=== PATIENT | male | born 1965 | race Caucasian/White ===

== ENCOUNTER 2017-10-18 11:45 | Observation (INO) | END 2017-10-18 19:17 | disposition home or self-care (01) ==

== ENCOUNTER 2017-11-29 14:41 | Inpatient (IN) | END 2017-12-01 10:00 | disposition home or self-care (01) | DRG 246 ==

== ENCOUNTER 2018-07-21 14:57 | Observation (INO) | payer MEDICARE, OTHER ==
[~2018-07-21] VITALS: Ht 167.6 cm; Wt 89.1 kg
[~2018-07-21 14:57] MED LIST: APIX5TAB PO; ATOR-2 PO; CALC667C PO; CARV6.2579 PO; CLOP75TA27 PO; FURO40TA4 PO; INSU100I33 SC; IRBE300T15 PO; SITA25TA3 PO; SVL800C PO; VIT1TABL46 PO
[2018-07-21 15:05] VITALS: Ht 167.6 cm; Wt 89.1 kg
--- NOTE | 2018-07-21 16:20 | ERD ---
ER Documentation Chief Complaint Chief Complaint chest pain started 1 hour ago radiatinng to left arm HPI 53-year-old male with a history of ESRD on hemodialysis, hypertension, diabetes, and CAD status post PCI 2018 presenting after he started having chest pain about 1 hour ago that was substernal and radiating to his left arm. It lasted for about 15 minutes. He was given aspirin and nitro prior to arrival by ambulance and his chest pain has since resolved. He was feeling short of breath when he had the chest pain but no dizziness or vomiting. Denies any recent travel or leg swelling. Last dialysis was yesterday. Of note, his Plavix, Eliquis, and aspirin have been stopped for an ophthalmology procedure he had today. ROS All systems reviewed and are negative except as per history of present illness. Medications Home Meds Reported Medications Isosorbide Mononitrate* (Isosorbide Mononitrate*) 30 Mg Tab.er.24h, 30 MG PO DAILY, TAB 07/21/18 Irbesartan* (Irbesartan*) 300 Mg Tablet, 300 MG PO DAILY, TAB 07/21/18 Furosemide* (Furosemide*) 40 Mg Tablet, 40 MG PO DAILY, TAB 07/21/18 [Fish Oil 300MG] No Conflict Check, 1 CAP PO DAILY 07/21/18 Clopidogrel Bisulfate* (Clopidogrel Bisulfate*) 75 Mg Tablet, 75 MG PO DAILY, #30 TAB 07/21/18 Carvedilol* (Carvedilol*) 6.25 Mg Tablet, 6.25 MG PO DAILY, #60 TAB 07/21/18 Calcium Acetate* (Calcium Acetate*) 667 Mg Capsule, 1334 MG PO WITH MEALS, #60 CAP 07/21/18 B Complex & C No.20/Folic Acid (Virt-Caps Softgel) 1 Mg Capsule, 1 MG PO DAILY, CAP 07/21/18 Sitagliptin* (Januvia*) 25 Mg Tablet, 25 MG PO DAILY, #30 TAB 07/21/18 Sevelamer Hcl* (Renagel*) 800 Mg Tablet, 2400 MG PO WITH MEALS, TAB 07/21/18 Insulin Glargine,Hum.rec.anlog (Basaglar Kwikpen U-100) 100 Unit/1 Ml Insuln.pen, 0 SC BID, EA 5 UNIT-QAM AND 15 UNIT-QPM 07/21/18 Lanthanum Carbonate* (Fosrenol*) 500 Mg Tab.chew, 500 MG PO TID, TAB.CHEW WITH MEALS 07/21/18 Discontinued Reported Medications Calcium Acetate* (Calcium Acetate*) 667 Mg Capsule, 2001 MG PO WITH MEALS, #90 CAP 10/18/17 Atorvastatin* (Atorvastatin*) 80 Mg Tablet, 80 MG PO QHS, #30 TAB 10/18/17 Irbesartan* (Irbesartan*) 300 Mg Tablet, 300 MG PO DAILY, TAB 10/18/17 Insulin Glargine,Hum.rec.anlog (Basaglar Kwikpen U-100) 100 Unit/1 Ml Insuln.pen, 8 UNIT SC DAILY, EA 10/18/17 Sitagliptin* (Januvia*) 25 Mg Tablet, 25 MG PO DAILY, #30 TAB 10/18/17 Clopidogrel Bisulfate (Clopidogrel) 75 Mg Tablet, 75 MG PO DAILY, #30 TAB 10/18/17 Sevelamer Hcl* (Renagel*) 800 Mg Tablet, 2400 MG PO WITH MEALS, TAB 10/18/17 Carvedilol* (Carvedilol*) 6.25 Mg Tablet, 6.25 MG PO BID, #60 TAB 10/18/17 Furosemide* (Furosemide*) 40 Mg Tablet, 40 MG PO DAILY, TAB 10/18/17 Vitamin B Complex* (Vitamin B Complex*) 1 Each Tablet, 1 TAB PO DAILY, TAB 10/18/17 Discontinued Scripts Apixaban* (Eliquis*) 5 Mg Tablet, 5 MG PO BID for 30 Days, TAB Prov:YOVANI SCHAFER MD 12/01/17 Allergies Allergies: Coded Allergies: No Known Allergies (Verified Allergy, Unknown, 07/21/18) PMhx/Soc History of Surgery: Yes (LT AV fistula, stent placement, left eye sx) Anesthesia Reaction: No Hx Neurological Disorder: No Hx Respiratory Disorders: No Hx Cardiac Disorders: Yes (HTN, STENT) Hx Psychiatric Problems: No Hx Miscellaneous Medical Probl: Yes (ESRD, DM) Hx Alcohol Use: No Hx Substance Use: No Hx Tobacco Use: No Smoking Status: Never smoker FmHx Family History: diabetes Physical Exam Vitals Vital Signs Date Temp Pulse Resp B/P (MAP) Pulse Ox O2 O2 Flow FiO2 Time Delivery Rate 07/21/18 108 20 161/85 97 Room Air 17:59 (110) 07/21/18 Nasal 4 15:14 Cannula 07/21/18 98.3 79 18 184/94 88 15:05 (124) Physical Exam Const: No acute distress Head: Atraumatic Eyes: right eye with normal conjunctiva. Left eye covered with patch ENT: Normal External Ears, Nose and Mouth. Neck: Full range of motion. No meningismus. Resp: Clear to auscultation bilaterally Cardio: Regular rate and rhythm, no murmurs. 2+ distal pulses in all 4 extremities Abd: Soft, non tender, non distended. Normal bowel sounds Skin: No petechiae or rashes Back: No midline or flank tenderness Ext: No cyanosis, or edema. Left upper extremity AV fistula Neur: Awake and alert Psych: Normal Mood and Affect Result Diagram: 07/21/18 1510 07/21/18 1510 Results 24 hrs Laboratory Tests Test 07/21/18 15:10 White Blood Count 10.0 10^3/ul Red Blood Count 3.98 10^6/ul Hemoglobin 11.3 g/dl Hematocrit 35.7 % Mean Corpuscular Volume 89.7 fl Mean Corpuscular Hemoglobin 28.4 pg Mean Corpuscular Hemoglobin Concent 31.7 g/dl Red Cell Distribution Width 13.2 % Platelet Count 163 10^3/UL Mean Platelet Volume 10.7 fl Immature Granulocytes % 1.000 % Neutrophils % 82.6 % Lymphocytes % 14.3 % Monocytes % 1.7 % Eosinophils % 0.1 % Basophils % 0.3 % Nucleated Red Blood Cells % 0.0 /100WBC Immature Granulocytes # 0.100 10^3/ul Neutrophils # 8.2 10^3/ul Lymphocytes # 1.4 10^3/ul Monocytes # 0.2 10^3/ul Eosinophils # 0.0 10^3/ul Basophils # 0.0 10^3/ul Nucleated Red Blood Cells # 0.0 10^3/ul Sodium Level 136 mmol/L Potassium Level 5.5 mmol/L Chloride Level 93 mmol/L Carbon Dioxide Level 30 mmol/L Anion Gap 13 Blood Urea Nitrogen 44 mg/dl Creatinine 8.82 mg/dl Est Glomerular Filtrat Rate mL/min 6 mL/min Glucose Level 395 mg/dl Calcium Level 9.1 mg/dl Troponin I 0.038 ng/ml Current Medications Medications Dose Sig/Joy Start Time Status Last (Trade) Ordered Route PRN Stop Time Admin Dose Reason Admin Ondansetron 4 mg ER BRIDGE 07/21/18 HCl (Zofran PRN IV 17:00 Inj) NAUSEA AND/OR 07/22/18 16:59 VOMITING 650 mg ER BRIDGE 07/21/18 Acetaminophen PRN PO MILD 17:00 (Tylenol PAIN(1-3)OR 07/22/18 16:59 Tab) ELEVATED TEMP Procedures/MDM EMERGENT LABS AND DIAGNOSTIC STUDIES: Lab Results above were reviewed and interpreted by me. CBC: no anemia or evidence of infection CMP: No evidence of electrolyte abnormality, renal failure, hypoglycemia, liver failure, or biliary obstruction Lipase: no evidence of pancreatitis Troponin within normal limits, not indicative of cardiac ischemia Lactate within normal limitswithout evidence of sepsis or tissue hypoperfusion UA: no evidence of infection 12-lead EKG #1 was interpreted by Mary Nolasco MD: Normal Sinus Rhythm with ventricular rate of 81 beats per minute Normal axis Normal intervals Minimal ST elevation upsloping in V2 No acute ST or T wave changes suggestive of acute ischemia or STEMI. 12-lead EKG #2 was interpreted by Mary Nolasco MD: Normal Sinus Rhythm with ventricular rate of 81 beats per minute Normal axis Normal intervals Minimal ST elevation upsloping in V2 No acute ST or T wave changes suggestive of acute ischemia or STEMI. Radiology Results as interpreted by Radiology below were reviewed by Devora Nolasco MD: Chest x-ray: IMPRESSION: Mild cardiomegaly with pulmonary vascular congestion. Slightly more focal right perihilar infiltrate. Initial Nursing notes reviewed. Previous Medical Records requested via the Electronic Health Record. EMERGENCY DEPARTMENT COURSE / MEDICAL DECISION MAKING: [] Patient's blood pressure was elevated (>120/80) but appears stable without evidence of hypertensive emergency or urgency. The patient was counseled about the risks of hypertension and urged to pursue outpatient monitoring and therapy within a week with their primary care physician. Departure Diagnosis: Primary Impression: Chest pain Chest pain type: unspecified Qualified Codes: R07.9 - Chest pain, unspecified Additional Impressions: ESRD on hemodialysis Hyperglycemia Hyperkalemia Condition: MARY Jean MD Jul 21, 2018 16:20
[2018-07-21] MEDS ORDERED: [UNRECOGNIZED DRUG - CODE] PO (16:23)
[2018-07-21] MEDS ORDERED: INSU100I33 SC (16:24)
[2018-07-21] MEDS ORDERED: SITA25TA3 PO (16:25)
[2018-07-21] MEDS ORDERED: SVL800C PO (16:25)
[2018-07-21] MEDS ORDERED: CALC667C PO (16:27)
[2018-07-21] MEDS ORDERED: B CO1CAP11 PO (16:27)
[2018-07-21] MEDS ORDERED: CARV6.2579 PO (16:28)
[2018-07-21] MEDS ORDERED: CLOP75TA19 PO (16:28)
[2018-07-21] MEDS ORDERED: FISH OIL 300 MG PO (16:29)
[2018-07-21] MEDS ORDERED: FURO40TA4 PO (16:30)
[2018-07-21] MEDS ORDERED: IRBE300T15 PO (16:30)
[2018-07-21] MEDS ORDERED: ISOS30TA67 PO (16:30)
[2018-07-21] MEDS ORDERED: ONDANSETRON 4 MG INJ IV PRN ×2 (17:00→19:00)
[2018-07-21] MEDS ORDERED: ACETAMINOPHEN 325 MG TAB PO PRN ×2 (17:00→19:00)
--- NOTE | 2018-07-21 18:56 | HP ---
Date/Time of Note Date/Time of Note DATE: 07/21/18 TIME: 18:51 Assessment/Plan VTE Prophylaxis Pharmacological prophylaxis: heparin Lines/Catheters IV Catheter Type (from Nrsg): Saline Lock Assessment/Plan Hospital Course 1. 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 Felton Cardiac meds 2. 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 Hypertension Continue meds 4. Diabetes Continue home regimen 5. Obesity Lifestyle changes Prophylaxis: Heparin Result Diagram: 07/21/18 1510 07/21/18 1510 Results 24hrs Laboratory Tests Test 07/21/18 15:10 White Blood Count 10.0 Red Blood Count 3.98 L Hemoglobin 11.3 L Hematocrit 35.7 L Mean Corpuscular Volume 89.7 Mean Corpuscular Hemoglobin 28.4 L Mean Corpuscular Hemoglobin Concent 31.7 L Red Cell Distribution Width 13.2 Platelet Count 163 Mean Platelet Volume 10.7 H Immature Granulocytes % 1.000 H Neutrophils % 82.6 H Lymphocytes % 14.3 L Monocytes % 1.7 Eosinophils % 0.1 Basophils % 0.3 Nucleated Red Blood Cells % 0.0 Immature Granulocytes # 0.100 H Neutrophils # 8.2 H Lymphocytes # 1.4 Monocytes # 0.2 L Eosinophils # 0.0 Basophils # 0.0 Nucleated Red Blood Cells # 0.0 Sodium Level 136 Potassium Level 5.5 H Chloride Level 93 L Carbon Dioxide Level 30 Anion Gap 13 Blood Urea Nitrogen 44 H Creatinine 8.82 H Est Glomerular Filtrat Rate mL/min 6 L Glucose Level 395 H Calcium Level 9.1 Troponin I 0.038 HPI/ROS Admit Date/Time Admit Date/Time July 21, 2018 Hx of Present Illness Patient is a 53-year-old male with a history of obesity, diabetes, end-stage renal disease, hypertension, paroxysmal A. fib, coronary disease status post PCI to LAD with stent placement in November 2017 as well as stent placement in the [facility] in 2006. Patient presents with sharp chest pain that radiates to his left arm that began earlier today and has now resolved. Patient denies any shortness of breath, fever or chills. ROS Constitutional: no complaints, improved Eyes: no complaints ENT: no complaints Respiratory: no complaints Cardiovascular: chest pain Gastrointestinal: no complaints Genitourinary: no complaints Musculoskeletal: no complaints Skin: no complaints Neurologic: no complaints Endocrine: no complaints Lymphatic: no complaints Psychological: no complaints, nl mood/affect Immunologic: no complaints PMH/Family/Social Past Medical History As per HPI Medications Current Medications Ondansetron HCl (Zofran Inj) 4 mg ER BRIDGE PRN IV NAUSEA AND/OR VOMITING; Start 07/21/18 at 17:00; Stop 07/22/18 at 16:59 Acetaminophen (Tylenol Tab) 650 mg ER BRIDGE PRN PO MILD PAIN(1-3)OR ELEVATED TEMP; Start 07/21/18 at 17:00; Stop 07/22/18 at 16:59 Coded Allergies: No Known Allergies (Verified Allergy, Unknown, 07/21/18) Family History Significant Family History: no pertinent family hx Social History Alcohol Use: rarely Smoking Status: Never smoker Drug Use: none Exam/Review of Systems Vital Signs Vitals Vital Signs Date Temp Pulse Resp B/P (MAP) Pulse Ox O2 O2 Flow FiO2 Time Delivery Rate 07/21/18 108 20 161/85 97 Room Air 17:59 (110) 07/21/18 4 15:14 07/21/18 98.3 15:05 Exam Constitutional: alert, oriented Respiratory: clear to auscultation Cardiovascular: regular rate and rhythm Gastrointestinal: soft; No distended Musculoskeletal: nl extremities to inspection JAMISON HU Jul 21, 2018 18:56
[2018-07-21] MEDS ORDERED: ZOLPIDEM 5 MG TAB PO PRN (19:00)
[2018-07-21] MEDS ORDERED: NITROGLYCERIN (SL) 0.4 MG TAB SL PRN (19:00)
[2018-07-21] MEDS ORDERED: HYDROCODONE/APAP (5/325) TAB PO PRN (19:00)
[2018-07-21] MEDS ORDERED: DOCUSATE SODIUM 100 MG CAP PO PRN (19:00)
[2018-07-21] MEDS ORDERED: NACL 0.9% 3 ML SYG IV SCH (19:00)
[2018-07-21] MEDS ORDERED: morphine 4 MG/ML VIAL IV PRN (19:00)
[2018-07-21 21:09] VITALS: PULSE 84
[2018-07-21 21:15] VITALS: BP 177/81; PULSE 84; RESP 18
[2018-07-21] MEDS: HEPARIN 5,000 UNIT/1 ML VIAL SC SCH (22:10)
[2018-07-22] VITALS (14 sets, daily range): BP systolic 134–190; BP diastolic 66–84; PULSE 74–87; RESP 18–20
[2018-07-22] MEDS ORDERED: hydrALAzine 20 MG INJ IV ONE ×2 (01:00→21:30)
--- NOTE | 2018-07-22 01:00 | NUR ---
Dr. Beauchamp aware of Trop level of 1.1. Dr. Beauchamp awaiting third Trop level to determine the next POC/ order.
--- NOTE | 2018-07-22 01:03 | NUR ---
Informed Dr. Beauchamp of the Pt's B/P of 190/80 at 0023. In addition, Dr. Beauchamp notified of the Pt troponin level of 1.1.
--- NOTE | 2018-07-22 01:45 | NUR ---
B/P is 160/76 s/p Hydralazine.
[2018-07-22] MEDS: ACCU-CHEK XX SCH ×4 (07:30→21:00)
[2018-07-22] MEDS ORDERED: INSULIN GLARGINE [LANTus] (100 UNITS/ML) SYG SC SCH ×4 (08:00→21:00)
[2018-07-22] MEDS: CALCIUM ACETATE 667 MG CAP PO SCH ×3 (08:21→16:58)
[2018-07-22] MEDS: SEVELAMER CARBONATE 800 MG TABLET PO SCH ×3 (08:22→16:58)
[2018-07-22] MEDS: LANTHANUM 500 MG CHEW PO SCH ×3 (08:23→16:58)
[2018-07-22] MEDS: HEPARIN 5,000 UNIT/1 ML VIAL SC SCH (08:31)
[2018-07-22] MEDS ORDERED: CLOPIDOGREL 75 MG TAB PO SCH (09:00)
[2018-07-22] MEDS ORDERED: FUROSEMIDE 40 MG TAB PO SCH (09:00)
[2018-07-22] MEDS ORDERED: LOSARTAN 50 MG TAB PO SCH (09:00)
[2018-07-22] MEDS ORDERED: ISOSORBIDE MONONITRATE(SR)30 MG TAB PO SCH (09:00)
--- NOTE | 2018-07-22 12:49 | PN ---
Date/Time of Note Date/Time of Note DATE: 07/22/18 TIME: 12:47 Assessment/Plan VTE Prophylaxis Risk score (from Nsg)>0 risk: 2 SCD applied (from Nsg): Yes Pharmacological prophylaxis: heparin Lines/Catheters IV Catheter Type (from Nrsg): Saline Lock Assessment/Plan Hospital Course 1. 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 Hypertension Continue meds 4. Diabetes Continue home regimen 5. Obesity Lifestyle changes Prophylaxis: Heparin DC planning: Anticipate DC home later today or tomorrow Result Diagram: 07/22/18 0706 07/22/18 0706 Results 24hrs Laboratory Tests Test 07/21/18 15:10 07/21/18 23:29 07/22/18 07:06 07/22/18 08:12 White Blood Count 10.0 11.7 H Red Blood Count 3.98 L 3.53 L Hemoglobin 11.3 L 10.1 L Hematocrit 35.7 L 31.0 L Mean Corpuscular 89.7 87.8 Volume Mean Corpuscular 28.4 L 28.6 L Hemoglobin Mean Corpuscular 31.7 L 32.6 Hemoglobin Concent Red Cell 13.2 13.6 Distribution Width Platelet Count 163 151 Mean Platelet Volume 10.7 H 11.7 H Immature 1.000 H 0.300 Granulocytes % Neutrophils % 82.6 H 63.4 Lymphocytes % 14.3 L 25.4 Monocytes % 1.7 10.4 Eosinophils % 0.1 0.2 Basophils % 0.3 0.3 Nucleated Red Blood 0.0 0.0 Cells % Immature 0.100 H 0.040 H Granulocytes # Neutrophils # 8.2 H 7.4 Lymphocytes # 1.4 3.0 H Monocytes # 0.2 L 1.2 H Eosinophils # 0.0 0.0 Basophils # 0.0 0.0 Nucleated Red Blood 0.0 0.0 Cells # Sodium Level 136 135 Potassium Level 5.5 H 5.8 H Chloride Level 93 L 94 L Carbon Dioxide Level 30 27 Anion Gap 13 14 H Blood Urea Nitrogen 44 H 65 H Creatinine 8.82 H 9.94 H Est Glomerular 6 L 5 L Filtrat Rate mL/min Glucose Level 395 H 195 # Calcium Level 9.1 8.8 Troponin I 0.038 1.100 *H 0.961 *H Creatine Kinase 125 104 Creatine Kinase 3.3 3.6 Index Creatinine Kinase MB 4.08 H 3.76 H (Mass) Hemoglobin A1c 7.5 H Phosphorus Level 3.5 Magnesium Level 2.5 Bedside Glucose 202 Test 07/22/18 12:25 Bedside Glucose 235 H Subjective 24 Hr Interval Summary Constitutional: no complaints Exam/Review of Systems Vital Signs Vitals Vital Signs Date Temp Pulse Resp B/P (MAP) Pulse Ox O2 O2 Flow FiO2 Time Delivery Rate 07/22/18 98.0 78 20 175/82 91 Room Air 11:52 (113) 07/22/18 2.0 08:10 Exam Constitutional: alert, oriented Respiratory: clear to auscultation Cardiovascular: regular rate and rhythm Gastrointestinal: soft; No distended Musculoskeletal: nl extremities to inspection Medications Medications Current Medications IV Flush (NS 3 ml) 3 ml PER PROTOCOL IV ; Start 07/21/18 at 19:00 Ondansetron HCl (Zofran Inj) 4 mg Q6H PRN IV NAUSEA AND/OR VOMITING; Start 07/21/18 at 19:00 Acetaminophen (Tylenol Tab) 650 mg Q6H PRN PO PAIN LEVEL 1-3 OR FEVER; Start 07/21/18 at 19:00 Acetaminophen/ Hydrocodone Bitart ([place] (5/325)) 1 tab Q6H PRN PO MODERATE PAIN LEVEL 4-6; Start 07/21/18 at 19:00 Morphine Sulfate (morphine) 2 mg Q4H PRN IV SEVERE PAIN LEVEL 7-10; Start 07/21/18 at 19:00 Docusate Sodium (Colace) 100 mg Q12H PRN PO CONSTIPATION; Start 07/21/18 at 19:00 Zolpidem Tartrate (Ambien) 5 mg QHS PRN PO SLEEP; Start 07/21/18 at 19:00 Heparin Sodium (Porcine) (Heparin (5000 Units/1ml)) 5,000 unit Q12 SC Last administered on 07/22/18at 08:31; Admin Dose 5,000 UNIT; Start 07/21/18 at 21:00 Calcium Acetate (Phoslo) 1,334 mg WITH MEALS PO Last administered on 07/22/18 12:30; Admin Dose 1,334 MG; Start 07/22/18 at 07:55 Carvedilol (Coreg) 6.25 mg DAILY PO Last administered on 07/22/18 08:23; Admin Dose 6.25 MG; Start 07/22/18 at 09:00 Clopidogrel Bisulfate (plaVIX) 75 mg DAILY PO Last administered on 07/22/18 08:23; Admin Dose 75 MG; Start 07/22/18 at 09:00 Furosemide (Lasix) 40 mg DAILY PO Last administered on 07/22/18 08:22; Admin Dose 40 MG; Start 07/22/18 at 09:00 Isosorbide Mononitrate (Imdur) 30 mg DAILY PO Last administered on 07/22/18 08:21; Admin Dose 30 MG; Start 07/22/18 at 09:00 Lanthanum Carbonate (Fosrenol) 500 mg WITH MEALS PO Last administered on 07/22/18 12:30; Admin Dose 500 MG; Start 07/22/18 at 07:55 Sevelamer Carbonate (Renvela) 2,400 mg WITH MEALS PO Last administered on 07/22/18 12:31; Admin Dose 2,400 MG; Start 07/22/18 at 07:55 Losartan Potassium (Cozaar) 100 mg DAILY PO Last administered on 07/22/18 08:22; Admin Dose 100 MG; Start 07/22/18 at 09:00 Nitroglycerin (Nitroglycerin (Sl Tab) 0.4 Mg) 1 tab Q5M PRN SL ANGINA; Start 07/21/18 at 19:00 Diagnostic Test (Pha) (Accu-Chek) 1 ea AC MEALS AND BEDTIME XX Last administered on 07/22/18 12:20; Admin Dose 1 EA; Start 07/22/18 at 07:30 Insulin Glargine (Lantus) 5 units DAILY@0800 SC Last administered on 07/22/18 08:31; Admin Dose 5 UNITS; Start 07/22/18 at 08:00 Insulin Glargine (Lantus) 15 units DAILY@2100 SC ; Start 07/22/18 at 21:00 JAMISON HU Jul 22, 2018 12:48
--- NOTE | 2018-07-22 12:55 | PDOCDIS ---
Discharge Instructions CONDITION [id number] Patient Condition: [id number] Good HOME CARE INSTRUCTIONS: [id number] Special Diet: [id number] Diabetic ACTIVITY: [id number] Activity Restrictions: [id number] No Restrictions FOLLOW UP/APPOINTMENTS Follow-up Plan FOLLOW UP WITH YOUR PRIMARY CARE PHYSICIAN IN 1-2 WEEKS JAMISON HU Jul 22, 2018 12:55
--- NOTE | 2018-07-22 12:58 | NUR ---
HEMODIALYSIS PT SCHEDULED FOR HEMODIALYSIS TODAY PER DR. LOCKETT. PT NOTIFIED. ALREADY SPOKE WITH ANAHI.
[2018-07-22] MEDS ORDERED: GLUCOSE GEL 15 GRAM TUBE BUCCAL PRN (13:00)
[2018-07-22] MEDS ORDERED: DEXTROSE 50% 50 ML SYRINGE IV PRN ×2 (13:00)
[2018-07-22] MEDS ORDERED: GLUCAGON 1 MG INJ IM PRN (13:00)
[2018-07-22] MEDS ORDERED: GLUCOSE GEL 15 GRAM TUBE PO PRN ×2 (13:00)
[2018-07-22] MEDS ORDERED: INSULIN GLARGINE [LANTus] (100 UNITS/ML) SYG SC ONE (13:30)
[2018-07-22] MEDS ORDERED: SOD CHLORIDE 0.9% 1,000 ML IV PRN (14:02)
--- NOTE | 2018-07-22 14:02 | CONS ---
Date/Time of Note Date/Time of Note DATE: 07/22/18 TIME: 13:55 Assessment/Plan Assessment/Plan Assessment/Plan 53 m with IDDM, HTN, CAD and ESRD on HD t/t/s admitted with atpical chest pain and elevated but stable troponin. he was noted to be hypertensive and hyperkalemic and i was asked to see him regarding cont hd this admission * ESRD: for hd today * hyperkalemia: will improve with HD * htn: fair control.monitor bp post hd an dif persistently elevated may need med adjustment * CP with elevated troponin: mutiple risk factors and known cad. await cardiac eval * IDDM: cont insulin * anemia in ESRD: epogen prn and check iron sats * secondary hyperparathyroidism: on multiple binders. check phos and PTH Result Diagram: 07/22/18 0706 07/22/18 0706 Results 24hrs Laboratory Tests Test 07/21/18 15:10 07/21/18 23:29 07/22/18 07:06 07/22/18 08:12 White Blood Count 10.0 11.7 H Red Blood Count 3.98 L 3.53 L Hemoglobin 11.3 L 10.1 L Hematocrit 35.7 L 31.0 L Mean Corpuscular 89.7 87.8 Volume Mean Corpuscular 28.4 L 28.6 L Hemoglobin Mean Corpuscular 31.7 L 32.6 Hemoglobin Concent Red Cell 13.2 13.6 Distribution Width Platelet Count 163 151 Mean Platelet Volume 10.7 H 11.7 H Immature 1.000 H 0.300 Granulocytes % Neutrophils % 82.6 H 63.4 Lymphocytes % 14.3 L 25.4 Monocytes % 1.7 10.4 Eosinophils % 0.1 0.2 Basophils % 0.3 0.3 Nucleated Red Blood 0.0 0.0 Cells % Immature 0.100 H 0.040 H Granulocytes # Neutrophils # 8.2 H 7.4 Lymphocytes # 1.4 3.0 H Monocytes # 0.2 L 1.2 H Eosinophils # 0.0 0.0 Basophils # 0.0 0.0 Nucleated Red Blood 0.0 0.0 Cells # Sodium Level 136 135 Potassium Level 5.5 H 5.8 H Chloride Level 93 L 94 L Carbon Dioxide Level 30 27 Anion Gap 13 14 H Blood Urea Nitrogen 44 H 65 H Creatinine 8.82 H 9.94 H Est Glomerular 6 L 5 L Filtrat Rate mL/min Glucose Level 395 H 195 # Calcium Level 9.1 8.8 Troponin I 0.038 1.100 *H 0.961 *H Creatine Kinase 125 104 Creatine Kinase 3.3 3.6 Index Creatinine Kinase MB 4.08 H 3.76 H (Mass) Hemoglobin A1c 7.5 H Phosphorus Level 3.5 Magnesium Level 2.5 Bedside Glucose 202 Test 07/22/18 12:25 Bedside Glucose 235 H Consultation Date/Type/Reason Admit Date/Time July 21, 2018 Reason for Consultation continued HD this admission Hx of Present Illness pt with known dm, htn, cad and esrd on hd t/t/s admitted for chest pain and mildly elevated troponin. states pain is sharp and radiates to the left arm. non exertional and not ass with sob or cp. awaiting cardiology eval Constitutional: no complaints Eyes: no complaints ENT: no complaints Respiratory: no complaints Cardiovascular: chest pain Gastrointestinal: no complaints Genitourinary: no complaints Musculoskeletal: no complaints Neurologic: no complaints Past Medical History Medical History: coronary artery disease, diabetes, high cholesterol, hypertension, renal disease Medications Current Medications IV Flush (NS 3 ml) 3 ml PER PROTOCOL IV ; Start 07/21/18 at 19:00 Ondansetron HCl (Zofran Inj) 4 mg Q6H PRN IV NAUSEA AND/OR VOMITING; Start 07/21/18 at 19:00 Acetaminophen (Tylenol Tab) 650 mg Q6H PRN PO PAIN LEVEL 1-3 OR FEVER; Start 07/21/18 at 19:00 Acetaminophen/ Hydrocodone Bitart ([place] (5/325)) 1 tab Q6H PRN PO MODERATE PAIN LEVEL 4-6; Start 07/21/18 at 19:00 Morphine Sulfate (morphine) 2 mg Q4H PRN IV SEVERE PAIN LEVEL 7-10; Start 07/21/18 at 19:00 Docusate Sodium (Colace) 100 mg Q12H PRN PO CONSTIPATION; Start 07/21/18 at 19:00 Zolpidem Tartrate (Ambien) 5 mg QHS PRN PO SLEEP; Start 07/21/18 at 19:00 Heparin Sodium (Porcine) (Heparin (5000 Units/1ml)) 5,000 unit Q12 SC Last administered on 07/22/18at 08:31; Admin Dose 5,000 UNIT; Start 07/21/18 at 21:00 Calcium Acetate (Phoslo) 1,334 mg WITH MEALS PO Last administered on 07/22/18 12:30; Admin Dose 1,334 MG; Start 07/22/18 at 07:55 Carvedilol (Coreg) 6.25 mg DAILY PO Last administered on 07/22/18 08:23; Admin Dose 6.25 MG; Start 07/22/18 at 09:00 Clopidogrel Bisulfate (plaVIX) 75 mg DAILY PO Last administered on 07/22/18 08:23; Admin Dose 75 MG; Start 07/22/18 at 09:00 Furosemide (Lasix) 40 mg DAILY PO Last administered on 07/22/18 08:22; Admin Dose 40 MG; Start 07/22/18 at 09:00 Isosorbide Mononitrate (Imdur) 30 mg DAILY PO Last administered on 07/22/18 08:21; Admin Dose 30 MG; Start 07/22/18 at 09:00 Lanthanum Carbonate (Fosrenol) 500 mg WITH MEALS PO Last administered on 07/22/18 12:30; Admin Dose 500 MG; Start 07/22/18 at 07:55 Sevelamer Carbonate (Renvela) 2,400 mg WITH MEALS PO Last administered on 07/22/18 12:31; Admin Dose 2,400 MG; Start 07/22/18 at 07:55 Losartan Potassium (Cozaar) 100 mg DAILY PO Last administered on 07/22/18 08:22; Admin Dose 100 MG; Start 07/22/18 at 09:00 Nitroglycerin (Nitroglycerin (Sl Tab) 0.4 Mg) 1 tab Q5M PRN SL ANGINA; Start 07/21/18 at 19:00 Diagnostic Test (Pha) (Accu-Chek) 1 ea AC MEALS AND BEDTIME XX Last administered on 07/22/18at 12:20; Admin Dose 1 EA; Start 07/22/18 at 07:30 Insulin Aspart (Novolog Insulin Pen) 5 unit WITH MEALS SC ; Start 07/22/18 at 17:55 Insulin Glargine (Lantus) 15 units DAILY@2100 SC ; Start 07/22/18 at 21:00 Miscellaneous Information 1 ea NOTE XX ; Start 07/22/18 at 13:00 Glucose (Glutose) 15 gm Q15M PRN PO DECREASED GLUCOSE; Start 07/22/18 at 13:00 Glucose (Glutose) 22.5 gm Q15M PRN PO DECREASED GLUCOSE; Start 07/22/18 at 13:00 Dextrose (D50w Syringe) 25 ml Q15M PRN IV DECREASED GLUCOSE; Start 07/22/18 at 13:00 Dextrose (D50w Syringe) 50 ml Q15M PRN IV DECREASED GLUCOSE; Start 07/22/18 at 13:00 Glucagon (Glucagen) 1 mg Q15M PRN IM DECREASED GLUCOSE; Start 07/22/18 at 13:00 Glucose (Glutose) 15 gm Q15M PRN BUCCAL DECREASED GLUCOSE; Start 07/22/18 at 13:00 Allergies: Coded Allergies: No Known Allergies (Verified Allergy, Unknown, 07/21/18) Past Surgical History Past Surgical Hx: noncontributory Family History Significant Family History: no pertinent family hx Social History Alcohol Use: none Smoking Status: Never smoker Drug Use: none Exam/Review of Systems Vital Signs Vitals Vital Signs Date Temp Pulse Resp B/P (MAP) Pulse Ox O2 O2 Flow FiO2 Time Delivery Rate 07/22/18 77 13:21 07/22/18 98.0 20 175/82 91 Room Air 11:52 (113) 07/22/18 2.0 08:10 Exam Constitutional: alert, oriented, well developed Psych: no complaints Head: normocephalic Eyes: nl conjunctiva ENMT: nl external ears & nose Neck: supple Respiratory: clear to auscultation Cardiovascular: regular rate and rhythm, edema Gastrointestinal: soft Medications Medications Current Medications IV Flush (NS 3 ml) 3 ml PER PROTOCOL IV ; Start 07/21/18 at 19:00 Ondansetron HCl (Zofran Inj) 4 mg Q6H PRN IV NAUSEA AND/OR VOMITING; Start 07/21/18 at 19:00 Acetaminophen (Tylenol Tab) 650 mg Q6H PRN PO PAIN LEVEL 1-3 OR FEVER; Start 07/21/18 at 19:00 Acetaminophen/ Hydrocodone Bitart ([place] (5/325)) 1 tab Q6H PRN PO MODERATE PAIN LEVEL 4-6; Start 07/21/18 at 19:00 Morphine Sulfate (morphine) 2 mg Q4H PRN IV SEVERE PAIN LEVEL 7-10; Start 07/21/18 at 19:00 Docusate Sodium (Colace) 100 mg Q12H PRN PO CONSTIPATION; Start 07/21/18 at 19:00 Zolpidem Tartrate (Ambien) 5 mg QHS PRN PO SLEEP; Start 07/21/18 at 19:00 Heparin Sodium (Porcine) (Heparin (5000 Units/1ml)) 5,000 unit Q12 SC Last administered on 07/22/18 08:31; Admin Dose 5,000 UNIT; Start 07/21/18 at 21:00 Calcium Acetate (Phoslo) 1,334 mg WITH MEALS PO Last administered on 07/22/18 12:30; Admin Dose 1,334 MG; Start 07/22/18 at 07:55 Carvedilol (Coreg) 6.25 mg DAILY PO Last administered on 07/22/18 08:23; Admin Dose 6.25 MG; Start 07/22/18 at 09:00 Clopidogrel Bisulfate (plaVIX) 75 mg DAILY PO Last administered on 07/22/18 08:23; Admin Dose 75 MG; Start 07/22/18 at 09:00 Furosemide (Lasix) 40 mg DAILY PO Last administered on 07/22/18 08:22; Admin Dose 40 MG; Start 07/22/18 at 09:00 Isosorbide Mononitrate (Imdur) 30 mg DAILY PO Last administered on 07/22/18 08:21; Admin Dose 30 MG; Start 07/22/18 at 09:00 Lanthanum Carbonate (Fosrenol) 500 mg WITH MEALS PO Last administered on 07/04 12:30; Admin Dose 500 MG; Start 07/22/18 at 07:55 Sevelamer Carbonate (Renvela) 2,400 mg WITH MEALS PO Last administered on 07/22/18 12:31; Admin Dose 2,400 MG; Start 07/22/18 at 07:55 Losartan Potassium (Cozaar) 100 mg DAILY PO Last administered on 07/22/18 08:22; Admin Dose 100 MG; Start 07/22/18 at 09:00 Nitroglycerin (Nitroglycerin (Sl Tab) 0.4 Mg) 1 tab Q5M PRN SL ANGINA; Start 07/21/18 at 19:00 Diagnostic Test (Pha) (Accu-Chek) 1 ea AC MEALS AND BEDTIME XX Last administered on 07/22/18at 12:20; Admin Dose 1 EA; Start 07/22/18 at 07:30 Insulin Aspart (Novolog Insulin Pen) 5 unit WITH MEALS SC ; Start 07/22/18 at 17:55 Insulin Glargine (Lantus) 15 units DAILY@2100 SC ; Start 07/22/18 at 21:00 Miscellaneous Information 1 ea NOTE XX ; Start 07/22/18 at 13:00 Glucose (Glutose) 15 gm Q15M PRN PO DECREASED GLUCOSE; Start 07/22/18 at 13:00 Glucose (Glutose) 22.5 gm Q15M PRN PO DECREASED GLUCOSE; Start 07/22/18 at 13:00 Dextrose (D50w Syringe) 25 ml Q15M PRN IV DECREASED GLUCOSE; Start 07/22/18 at 13:00 Dextrose (D50w Syringe) 50 ml Q15M PRN IV DECREASED GLUCOSE; Start 07/22/18 at 13:00 Glucagon (Glucagen) 1 mg Q15M PRN IM DECREASED GLUCOSE; Start 07/22/18 at 13:00 Glucose (Glutose) 15 gm Q15M PRN BUCCAL DECREASED GLUCOSE; Start 07/22/18 at 13:00 PANKAJ LOCKETT MD Jul 22, 2018 14:02
[2018-07-22] MEDS ORDERED: ALBUMIN HUMAN 25% 50 ML IV PRN (14:30)
[2018-07-22] MEDS ORDERED: HEPARIN 1000 UNITS/ML 10 ML INJ HE SCH (14:30)
--- NOTE | 2018-07-22 14:44 | CONS ---
Date/Time of Note Date/Time of Note DATE: 07/22/18 TIME: 14:32 Assessment/Plan Assessment/Plan Hospital Course 53 yo with small NSTEMI, with multiple comorbidities Assessment/Plan Impression: NSTEMI, postoperative from eye surgery Hypertension, not controlled ESRD DM 2 Paroxysmal afib Recommendations: Aspirin, clopidogrel, and Eliquis as medical therapy for NSTEMI Increase carvedilol to 12.5 mg po bid Echocardiogram ordered Would benefit from angiography next week, will defer to Dr. Bentley Discussed lifestyle -- exercise, healthier diet Stable for discharge but emphasized he needs to see Dr. Bentley or one of his partners early next week Result Diagram: 07/22/18 0706 07/22/18 0706 Results 24hrs Laboratory Tests Test 07/21/18 15:10 07/21/18 23:29 07/22/18 07:06 07/22/18 08:12 White Blood Count 10.0 11.7 H Red Blood Count 3.98 L 3.53 L Hemoglobin 11.3 L 10.1 L Hematocrit 35.7 L 31.0 L Mean Corpuscular 89.7 87.8 Volume Mean Corpuscular 28.4 L 28.6 L Hemoglobin Mean Corpuscular 31.7 L 32.6 Hemoglobin Concent Red Cell 13.2 13.6 Distribution Width Platelet Count 163 151 Mean Platelet Volume 10.7 H 11.7 H Immature 1.000 H 0.300 Granulocytes % Neutrophils % 82.6 H 63.4 Lymphocytes % 14.3 L 25.4 Monocytes % 1.7 10.4 Eosinophils % 0.1 0.2 Basophils % 0.3 0.3 Nucleated Red Blood 0.0 0.0 Cells % Immature 0.100 H 0.040 H Granulocytes # Neutrophils # 8.2 H 7.4 Lymphocytes # 1.4 3.0 H Monocytes # 0.2 L 1.2 H Eosinophils # 0.0 0.0 Basophils # 0.0 0.0 Nucleated Red Blood 0.0 0.0 Cells # Sodium Level 136 135 Potassium Level 5.5 H 5.8 H Chloride Level 93 L 94 L Carbon Dioxide Level 30 27 Anion Gap 13 14 H Blood Urea Nitrogen 44 H 65 H Creatinine 8.82 H 9.94 H Est Glomerular 6 L 5 L Filtrat Rate mL/min Glucose Level 395 H 195 # Calcium Level 9.1 8.8 Troponin I 0.038 1.100 *H 0.961 *H Creatine Kinase 125 104 Creatine Kinase 3.3 3.6 Index Creatinine Kinase MB 4.08 H 3.76 H (Mass) Hemoglobin A1c 7.5 H Phosphorus Level 3.5 Magnesium Level 2.5 Bedside Glucose 202 Test 07/22/18 12:25 Bedside Glucose 235 H Consultation Date/Type/Reason Admit Date/Time July 21, 2018 Date of Consultation: Jul 22, 2018 Type of Consult cardiology Reason for Consultation chest pain Requesting Provider: JAMISON HU Hx of Present Illness [address] Aristeo Bentley with known cad, pci in [facility] 2006, ESRD, DM, obesity, paroxysmal afib, presents with chest pain that started after his eye surgery yesterday. He had held clopidogrel and Eliquis for four days prior to the procedure. The pain started while he was seated, was sharp, radiated down the left arm, and in total lasted about 20 minutes. He has had no recurrence of the pain. At baseline he does not exercise much, and diet is less than ideal with a lot of white rice and fried foods. Constitutional: no complaints, improved Eyes: other (bandage in place post surgery) ENT: no complaints Respiratory: no complaints Cardiovascular: chest pain Gastrointestinal: no complaints Genitourinary: no complaints Musculoskeletal: no complaints Skin: no complaints Neurologic: no complaints Endocrine: no complaints Lymphatic: no complaints Psychological: no complaints, nl mood/affect Immunologic: no complaints Past Medical History Medical History: coronary artery disease, diabetes, high cholesterol, hypertension, renal disease Medications Current Medications IV Flush (NS 3 ml) 3 ml PER PROTOCOL IV ; Start 07/21/18 at 19:00 Ondansetron HCl (Zofran Inj) 4 mg Q6H PRN IV NAUSEA AND/OR VOMITING; Start 07/21/18 at 19:00 Acetaminophen (Tylenol Tab) 650 mg Q6H PRN PO PAIN LEVEL 1-3 OR FEVER; Start 07/21/18 at 19:00 Acetaminophen/ Hydrocodone Bitart ([place] (5/325)) 1 tab Q6H PRN PO MODERATE PAIN LEVEL 4-6; Start 07/21/18 at 19:00 Morphine Sulfate (morphine) 2 mg Q4H PRN IV SEVERE PAIN LEVEL 7-10; Start 07/21/18 at 19:00 Docusate Sodium (Colace) 100 mg Q12H PRN PO CONSTIPATION; Start 07/21/18 at 19:00 Zolpidem Tartrate (Ambien) 5 mg QHS PRN PO SLEEP; Start 07/21/18 at 19:00 Heparin Sodium (Porcine) (Heparin (5000 Units/1ml)) 5,000 unit Q12 SC Last administered on 07/22/18 08:31; Admin Dose 5,000 UNIT; Start 07/21/18 at 21:00 Calcium Acetate (Phoslo) 1,334 mg WITH MEALS PO Last administered on 07/22/18 12:30; Admin Dose 1,334 MG; Start 07/22/18 at 07:55 Carvedilol (Coreg) 6.25 mg DAILY PO Last administered on 07/22/18 08:23; Admin Dose 6.25 MG; Start 07/22/18 at 09:00 Clopidogrel Bisulfate (plaVIX) 75 mg DAILY PO Last administered on 07/22/18 08:23; Admin Dose 75 MG; Start 07/22/18 at 09:00 Furosemide (Lasix) 40 mg DAILY PO Last administered on 07/22/18 08:22; Admin Dose 40 MG; Start 07/22/18 at 09:00 Isosorbide Mononitrate (Imdur) 30 mg DAILY PO Last administered on 07/22/18 08:21; Admin Dose 30 MG; Start 07/22/18 at 09:00 Lanthanum Carbonate (Fosrenol) 500 mg WITH MEALS PO Last administered on 07/22/18 12:30; Admin Dose 500 MG; Start 07/22/18 at 07:55 Sevelamer Carbonate (Renvela) 2,400 mg WITH MEALS PO Last administered on 07/22/18 12:31; Admin Dose 2,400 MG; Start 07/22/18 at 07:55 Losartan Potassium (Cozaar) 100 mg DAILY PO Last administered on 07/22/18 08:22; Admin Dose 100 MG; Start 07/22/18 at 09:00 Nitroglycerin (Nitroglycerin (Sl Tab) 0.4 Mg) 1 tab Q5M PRN SL ANGINA; Start 07/21/18 at 19:00 Diagnostic Test (Pha) (Accu-Chek) 1 ea AC MEALS AND BEDTIME XX Last adminis tered on 07/22/18at 12:20; Admin Dose 1 EA; Start 07/22/18 at 07:30 Insulin Aspart (Novolog Insulin Pen) 5 unit WITH MEALS SC ; Start 07/22/18 at 17:55 Insulin Glargine (Lantus) 15 units DAILY@2100 SC ; Start 07/22/18 at 21:00 Miscellaneous Information 1 ea NOTE XX ; Start 07/22/18 at 13:00 Glucose (Glutose) 15 gm Q15M PRN PO DECREASED GLUCOSE; Start 07/22/18 at 13:00 Glucose (Glutose) 22.5 gm Q15M PRN PO DECREASED GLUCOSE; Start 07/22/18 at 13:00 Dextrose (D50w Syringe) 25 ml Q15M PRN IV DECREASED GLUCOSE; Start 07/22/18 at 13:00 Dextrose (D50w Syringe) 50 ml Q15M PRN IV DECREASED GLUCOSE; Start 07/22/18 at 13:00 Glucagon (Glucagen) 1 mg Q15M PRN IM DECREASED GLUCOSE; Start 07/22/18 at 13:00 Glucose (Glutose) 15 gm Q15M PRN BUCCAL DECREASED GLUCOSE; Start 07/22/18 at 13:00 Heparin Sodium (Porcine) (Heparin (1000 Units/ml)) 2,000 unit WITH DIALYSIS HE ; Start 07/22/18 at 14:30 Sodium Chloride 1,000 ml @ 0 mls/hr Q0M PRN IV sbp<90; Start 07/22/18 at 14:02 Albumin Human 50 ml @ 100 mls/hr WITH DIALYSIS PRN IV sbp<90; Start 07/22/18 at 14:30 Allergies: Coded Allergies: No Known Allergies (Verified Allergy, Unknown, 07/21/18) Past Surgical History Past Surgical Hx: noncontributory Social History Alcohol Use: none Smoking Status: Never smoker Drug Use: none Exam/Review of Systems Vital Signs Vitals Vital Signs Date Temp Pulse Resp B/P (MAP) Pulse Ox O2 O2 Flow FiO2 Time Delivery Rate 07/22/18 77 13:21 07/22/18 98.0 20 175/82 91 Room Air 11:52 (113) 07/22/18 2.0 08:10 Exam Constitutional: alert, oriented, well developed Psych: no complaints, nl mood/affect Head: normocephalic, atraumatic Eyes: nl conjunctiva (on right), EOMI (on right), nl lids (on right), nl sclera (on right), other (left eye bandaged) ENMT: nl external ears & nose, nl lips & teeth, nl nasal mucosa & septum Neck: supple; No jvd, No bruits Respiratory: clear to auscultation, normal air movement Cardiovascular: regular rate and rhythm; No nl pulses (DP pulses 1+) Gastrointestinal: soft, nl liver, spleen, non-tender Musculoskeletal: nl extremities to inspection Extremities: edema (trace bilaterally) Neurological: nl mental status, nl speech Skin: nl turgor; No rash or lesions Lymph: nl lymph nodes Medications Medications Current Medications IV Flush (NS 3 ml) 3 ml PER PROTOCOL IV ; Start 07/21/18 at 19:00 Ondansetron HCl (Zofran Inj) 4 mg Q6H PRN IV NAUSEA AND/OR VOMITING; Start 07/21/18 at 19:00 Acetaminophen (Tylenol Tab) 650 mg Q6H PRN PO PAIN LEVEL 1-3 OR FEVER; Start 07/21/18 at 19:00 Acetaminophen/ Hydrocodone Bitart ([place] (5/325)) 1 tab Q6H PRN PO MODERATE P AIN LEVEL 4-6; Start 07/21/18 at 19:00 Morphine Sulfate (morphine) 2 mg Q4H PRN IV SEVERE PAIN LEVEL 7-10; Start 07/21/18 at 19:00 Docusate Sodium (Colace) 100 mg Q12H PRN PO CONSTIPATION; Start 07/21/18 at 19:00 Zolpidem Tartrate (Ambien) 5 mg QHS PRN PO SLEEP; Start 07/21/18 at 19:00 Heparin Sodium (Porcine) (Heparin (5000 Units/1ml)) 5,000 unit Q12 SC Last administered on 07/22/18at 08:31; Admin Dose 5,000 UNIT; Start 07/21/18 at 21:00 Calcium Acetate (Phoslo) 1,334 mg WITH MEALS PO Last administered on 07/22/18at 12:30; Admin Dose 1,334 MG; Start 07/22/18 at 07:55 Carvedilol (Coreg) 6.25 mg DAILY PO Last administered on 07/22/18at 08:23; Admin Dose 6.25 MG; Start 07/22/18 at 09:00 Clopidogrel Bisulfate (plaVIX) 75 mg DAILY PO Last administered on 07/22/18 08:23; Admin Dose 75 MG; Start 07/22/18 at 09:00 Furosemide (Lasix) 40 mg DAILY PO Last administered on 07/22/18at 08:22; Admin Dose 40 MG; Start 07/22/18 at 09:00 Isosorbide Mononitrate (Imdur) 30 mg DAILY PO Last administered on 07/22/18 08:21; Admin Dose 30 MG; Start 07/22/18 at 09:00 Lanthanum Carbonate (Fosrenol) 500 mg WITH MEALS PO Last administered on 07/22/18 12:30; Admin Dose 500 MG; Start 07/22/18 at 07:55 Sevelamer Carbonate (Renvela) 2,400 mg WITH MEALS PO Last administered on 07/22/18 12:31; Admin Dose 2,400 MG; Start 07/22/18 at 07:55 Losartan Potassium (Cozaar) 100 mg DAILY PO Last administered on 07/22/18 08:22; Admin Dose 100 MG; Start 07/22/18 at 09:00 Nitroglycerin (Nitroglycerin (Sl Tab) 0.4 Mg) 1 tab Q5M PRN SL ANGINA; Start 07/21/18 at 19:00 Diagnostic Test (Pha) (Accu-Chek) 1 ea AC MEALS AND BEDTIME XX Last administered on 07/22/18at 12:20; Admin Dose 1 EA; Start 07/22/18 at 07:30 Insulin Aspart (Novolog Insulin Pen) 5 unit WITH MEALS SC ; Start 07/22/18 at 17:55 Insulin Glargine (Lantus) 15 units DAILY@2100 SC ; Start 07/22/18 at 21:00 Miscellaneous Information 1 ea NOTE XX ; Start 07/22/18 at 13:00 Glucose (Glutose) 15 gm Q15M PRN PO DECREASED GLUCOSE; Start 07/22/18 at 13:00 Glucose (Glutose) 22.5 gm Q15M PRN PO DECREASED GLUCOSE; Start 07/22/18 at 13:00 Dextrose (D50w Syringe) 25 ml Q15M PRN IV DECREASED GLUCOSE; Start 07/22/18 at 13:00 Dextrose (D50w Syringe) 50 ml Q15M PRN IV DECREASED GLUCOSE; Start 07/22/18 at 13:00 Glucagon (Glucagen) 1 mg Q15M PRN IM DECREASED GLUCOSE; Start 07/22/18 at 13:00 Glucose (Glutose) 15 gm Q15M PRN BUCCAL DECREASED GLUCOSE; Start 07/22/18 at 13:00 Heparin Sodium (Porcine) (Heparin (1000 Units/ml)) 2,000 unit WITH DIALYSIS HE ; Start 07/22/18 at 14:30 Sodium Chloride 1,000 ml @ 0 mls/hr Q0M PRN IV sbp<90; Start 07/22/18 at 14:02 Albumin Human 50 ml @ 100 mls/hr WITH DIALYSIS PRN IV sbp<90; Start 07/22/18 at 14:30 Imaging Imaging EKG shows NSR at 81 bpm, septal infarct, no acute changes SD ALTAMIRANO Jul 22, 2018 14:44
[2018-07-22] MEDS ORDERED: ASPI-831 PO (14:48)
[2018-07-22] MEDS ORDERED: CARV12.579 PO (14:48)
[2018-07-22] MEDS ORDERED: ASPIRIN 81 MG TAB PO SCH (15:00)
[2018-07-22] MEDS: APIXABAN 5 MG TABLET PO SCH ×2 (15:17→23:03)
--- NOTE | 2018-07-22 15:26 | NUR ---
HEMODIALYSIS THIS PM PT. TO BE DIALYZED THIS EVENING/ CONFIRMATION #[id number].
[2018-07-22] MEDS ORDERED: INSULIN ASPART [NOVOLOG] 3 ML PEN SC SCH (17:55)
--- NOTE | 2018-07-22 20:30 | NUR ---
BP was also 190/87 and rising, Dr. Beauchapm wanted to wait until HD is done but informed him that dialysis will be delayed and that we already have followed up with [facility] and HD may be done between midnight and 6am. Order received to give 20mg Hydralazine IV one time. Pt and very frustrated that they been given false reassurance that pt will have dialysis during the day. They have been waiting since 9:30am. Followed up with [facility] and they said they can't guarantee what time dialysis nurse will arrive but it will be here between now (9pm)-6am which is very unacceptable to pt because they were not informed and that they had plans for follow up in [facility] the next morning too. Charge Nurse Caitlyn and [employer] Printing [employer] Operator made aware.
[2018-07-22] MEDS ORDERED: hydrALAzine 20 MG INJ ONE (21:18)
[2018-07-23] VITALS (17 sets, daily range): BP systolic 108–159; BP diastolic 48–81; PULSE 69–77; RESP 18–20
--- NOTE | 2018-07-23 06:51 | NUR ---
EOSS Pt AOx4, agitated at the beginning of shift for the delay of HD. VS stable. BP at beginning of shift was high, went down after 20mg Hydralazine given one time. Sinus rhythm on monitor. On room air. Ambulatory and steady. Dialysis nurse arrived at 0145. HD finished at 0615. 3L out. No complaints of pain/SOB/. Last set of vitals at 0630 were 98.2, 73, 16, 139/64, 98%. No complaints of SOB or dizziness s/p HD, no pain, no chestpain. VSS. Pt discharged at 0645 as per pt and spouse demand. MARILIN Forbes transported pt down via wheelchair. Fall precautions implemented. Hourly rounding done. Addendum: 07/23/18 at 0703 by BRIGETTE CARTER RN Pt insisted to be discharge [facility] because they have an appointment setup at [facility] as follow up for his post-op eye surgery. Pt denies any pain, dizziness, chestpain, lightheadedness s/p HD. Pt stable. Vitals signs stable.
--- NOTE | 2018-07-23 17:19 | RADRPT ---
Echocardiogram Report Patient Name: CHIO PADILLA Gender: Male Date: 1965 Study Date: 22-Jul-2018 Measuring Clerk: Darrian morataya [facility] Location: [address] Ref. Physician: KIM URBINA Quality: Adequate Procedures: Transthoracic echocardiogram with complete 2D, M-Mode, and doppler examination. Indications: NSTEMI. 2D/M Mode Doppler Measurement Value Normal Ranges Measurement Value Normal Ranges LVIDd 2D 4.9 3.5 - 5.6 cm AV Peak Josh 1.7 m/sec LVIDs 2D 3.2 2.1 - 4.1 cm AV Peak PG 12.0 mmHg LVPWd 2D 1.2 0.6 - 1.1 cm LVOT Peak Josh 1.2 m/sec IVSd 2D 1.0 0.6 - 1.1 cm LVOT Peak PG 6.0 mmHg AoR Diam 2D 2.8 2.0 - 3.7 cm MV E Peak Josh 1.0 m/sec LA/Ao 2D 2 0 - 1 MV A Peak Josh 0.9 m/sec LA Dimen 2D 4.6 2.3 - 4.0 cm MV E/A 1.2 MV Decel Time 158 msec Lat E` Josh 0.1 m/sec Lateral E/E` 12.7 Med E` Josh 0.1 m/sec MV E/A 1.2 TR Peak Josh 2.8 m/sec TR Peak PG 32.0 mmHg Findings Left Ventricle: Normal left ventricular systolic function. Normal left ventricular cavity size. Normal left ventricular wall thickness. Ejection fraction is visually estimated at 55 %. Tissue Doppler/Mitral Doppler indices are consistent with pseudonormalization with mildly elevated left atrial pressure (Stage II diastolic dysfunction). Right Ventricle: Normal right ventricular size. Normal right ventricular systolic function. Left Atrium: There is moderate enlargement of left atrium. Right Atrium: The right atrium is normal in size. Mitral Valve: Normal appearance of the mitral valve. Trace mitral regurgitation. Aortic Valve: Aortic valve not well visualized. No aortic regurgitation. Tricuspid Valve: Normal appearance of the tricuspid valve. There is trace tricuspid regurgitation. Pulmonic Valve: Pulmonic valve not well visualized. Pericardium: Normal pericardium with no significant pericardial effusion. Aorta: Normal aortic root. IVC: The IVC is not well visualized. Conclusions Fair quality study. Normal left ventricular systolic function. Pseudonormal diastolic function. Moderate left atrial enlargement. Trace tricuspid regurgitation and mild pulmonary hypertension. Trace mitral regurgitation. Electronically Signed By: Kim Urbina 23-Jul-2018 17:19:31 -0800 Patient Name: CHIO PADILLA Study Date: 22-Jul-2018 [id number]
--- NOTE | 2018-07-23 20:08 | DS ---
Date/Time of Note Date/Time of Note DATE: 07/23/18 TIME: 20:05 Discharge Summary Admission/Discharge Info Admit Date/Time Jul 21, 2018 at 16:38 Discharge Date/Time Jul 23, 2018 at 06:45 Discharge Diagnosis 1. 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 Hypertension Continue meds 4. Diabetes Continue home regimen 5. Obesity Lifestyle changes Patient Condition: Good Hospital Course Patient is a 53-year-old male with a history of stage renal disease, hypertension, diabetes, obesity, coronary disease status post PCI in the past. Patient presents with chest pain with mildly elevated troponins, troponins did stabilize and chest pain did resolve. Patient was seen by cardiology and was started on aspirin and Coreg dose was increased in addition to other cardiac meds. Patient was stable for DC to home and to follow-up with cardiology as an outpatient, patient did receive dialysis in house. On day of discharge patient's vitals, labs and physical exam are stable patient has no acute complaints and questions are answered. Home Meds Active Scripts Aspirin (Aspirin) 81 Mg Chew, 81 MG PO DAILY, #90 TAB Prov:JAMISON HU 07/22/18 Carvedilol* (Carvedilol*) 12.5 Mg Tablet, 12.5 MG PO DAILY, #60 TAB Prov:JAMISON HU 07/22/18 Reported Medications Isosorbide Mononitrate* (Isosorbide Mononitrate*) 30 Mg Tab.er.24h, 30 MG PO DAILY, TAB 07/21/18 Irbesartan* (Irbesartan*) 300 Mg Tablet, 300 MG PO DAILY, TAB 07/21/18 Furosemide* (Furosemide*) 40 Mg Tablet, 40 MG PO DAILY, TAB 07/21/18 [Fish Oil 300MG] No Conflict Check, 1 CAP PO DAILY 07/21/18 Clopidogrel Bisulfate* (Clopidogrel Bisulfate*) 75 Mg Tablet, 75 MG PO DAILY, #30 TAB 07/21/18 Calcium Acetate* (Calcium Acetate*) 667 Mg Capsule, 1334 MG PO WITH MEALS, #60 CAP 07/21/18 B Complex & C No.20/Folic Acid (Virt-Caps Softgel) 1 Mg Capsule, 1 MG PO DAILY, CAP 07/21/18 Sitagliptin* (Januvia*) 25 Mg Tablet, 25 MG PO DAILY, #30 TAB 07/21/18 Sevelamer Hcl* (Renagel*) 800 Mg Tablet, 2400 MG PO WITH MEALS, TAB 07/21/18 Insulin Glargine,Hum.rec.anlog (Basaglar Kwikpen U-100) 100 Unit/1 Ml Insuln.pen, 0 SC BID, EA 5 UNIT-QAM AND 15 UNIT-QPM 07/21/18 Lanthanum Carbonate* (Fosrenol*) 500 Mg Tab.chew, 500 MG PO TID, TAB.CHEW WITH MEALS 07/21/18 Discontinued Reported Medications Carvedilol* (Carvedilol*) 6.25 Mg Tablet, 6.25 MG PO DAILY, #60 TAB 07/21/18 Calcium Acetate* (Calcium Acetate*) 667 Mg Capsule, 2001 MG PO WITH MEALS, #90 CAP 10/18/17 Atorvastatin* (Atorvastatin*) 80 Mg Tablet, 80 MG PO QHS, #30 TAB 10/18/17 Irbesartan* (Irbesartan*) 300 Mg Tablet, 300 MG PO DAILY, TAB 10/18/17 Insulin Glargine,Hum.rec.anlog (Basaglar Kwikpen U-100) 100 Unit/1 Ml I nsuln.pen, 8 UNIT SC DAILY, EA 10/18/17 Sitagliptin* (Januvia*) 25 Mg Tablet, 25 MG PO DAILY, #30 TAB 10/18/17 Clopidogrel Bisulfate (Clopidogrel) 75 Mg Tablet, 75 MG PO DAILY, #30 TAB 10/18/17 Sevelamer Hcl* (Renagel*) 800 Mg Tablet, 2400 MG PO WITH MEALS, TAB 10/18/17 Carvedilol* (Carvedilol*) 6.25 Mg Tablet, 6.25 MG PO BID, #60 TAB 10/18/17 Furosemide* (Furosemide*) 40 Mg Tablet, 40 MG PO DAILY, TAB 10/18/17 Vitamin B Complex* (Vitamin B Complex*) 1 Each Tablet, 1 TAB PO DAILY, TAB 10/18/17 Discontinued Scripts Apixaban* (Eliquis*) 5 Mg Tablet, 5 MG PO BID for 30 Days, TAB Prov:YOVANI SCHAFER MD 12/01/17 Follow-up Plan FOLLOW UP WITH YOUR PRIMARY CARE PHYSICIAN IN 1-2 WEEKS Primary Care Provider Time spent on discharge: > 30 minutes JAMISON HU Jul 23, 2018 20:08
[2018-08-04] MEDS ORDERED: APIX2.5T PO (17:02)
[2018-08-07] MEDS ORDERED: CARV6.2579 PO (07:39)
== END 2018-07-23 06:45 | disposition home or self-care (01) ==
LOC: E/R 14:57 → MERGE 14:57 → TEL 16:38
PROVIDERS: ADMIT Internal Medicine; ATTEND Internal Medicine
DX: R07.9 Chest pain, unspecified (principal); I12.0 Hypertensive chronic kidney disease with stage 5 chronic kidney disease or end stage renal disease; N18.6 End stage renal disease; Z99.2 Dependence on renal dialysis; E11.9 Type 2 diabetes mellitus without complications; Z79.4 Long term (current) use of insulin; E66.9 Obesity, unspecified; Z68.31 Body mass index [BMI] 31.0-31.9, adult; D63.1 Anemia in chronic kidney disease
CPT/HCPCS: 36415; 71045; 80048; 82550; 82553; 82962; 83036; 83735; 84100; 84484; 85025; 87340; 90935; 93005; 93306; 99285; G0378; J0360; J1644; J1815; G0257